=== PATIENT | male | born 1980 | race Caucasian/White ===

== ENCOUNTER 2017-01-05 11:46 | Emergency (ER) ==
[2017-01-05 11:46] VITALS: BMI 29.0
[2017-01-05 11:52] VITALS: BP 130/85; TEMP 97.2
--- NOTE | 2017-01-05 11:54 | ED.PDOC ---
General ED Provider: Dr. EMELY PATIÑO Chief Complaint: Tooth Problem Stated Complaint: dental pain Time Seen by Physician: 11:50 (see photos berenice present at all times ) Mode of Arrival: Walk-In Information Source: Patient Exam Limitations: No limitations Primary Care Provider: KENNY BONILLA Nursing and Triage Documentation Reviewed and Agree: Yes (seen his dentist and just got started on antibiotics today) Review of Systems - Review Of Systems Constitutional: Reports: No symptoms Eyes: Reports: No symptoms Ears, Nose, Mouth, Throat: Reports: Mouth pain (facial edema right side) Respiratory: Reports: No symptoms Cardiac: Reports: No symptoms GI: Reports: No symptoms : Reports: No symptoms Musculoskeletal: Reports: No symptoms Skin: Reports: No symptoms Neurological: Reports: No symptoms Endocrine: Reports: No symptoms Hematologic/Lymphatic: Reports: No symptoms All Other Systems: Reviewed and Negative Past Medical History - Past Medical History Previously Healthy: Yes Endocrine: Reports: None Cardiovascular: Reports: None Respiratory: Reports: None Hematological: Reports: None Gastrointestinal: Reports: None Genitourinary: Reports: None Neuro/Psych: Reports: None Musculoskeletal: Reports: None Cancer: Reports: None - Surgical History General Surgical History: Reports: None - Family History Family History: Reports: None - Social History Smoking Status: Current every day smoker Hx Substance Use: No Alcohol Screening: None Physical Exam - Physical Exam Appearance: Well-appearing, No pain distress, Well-nourished Eyes: MELBA, EOMI, Conjunctiva clear ENT: Ears normal (facial edema see photos), Nose normal, Oropharynx normal Respiratory: Airway patent, Breath sounds clear, Breath sounds equal, Respirations nonlabored Cardiovascular: RRR, Pulses normal, No rub, No murmur GI/: Soft, Nontender, No masses, Bowel sounds normal, No Organomegaly Musculoskeletal: Normal strength, ROM intact, No edema, No calf tenderness Skin: Warm, Dry, Normal color Neurological: Sensation intact, Motor intact, Reflexes intact, Cranial nerves intact, Alert, Oriented Psychiatric: Affect appropriate, Mood appropriate Critical Care Note - Critical Care Note Total Time (mins): 0 Course - Course Vital Signs: Temp Pulse Resp BP Pulse Ox 01/05/17 11:47 97.2 F L 87 16 130/85 98 Departure - Departure Time of Disposition: 12:17 (started meds today) Disposition: HOME SELF-CARE Discharge Problem: Toothache, Dental abscess Instructions: Dental Abscess (ED), Dental Abscess (GEN) Condition: Good Pt referred to PMD for follow-up: Yes Additional Instructions: Please call your Family Physician as soon as possible to schedule a follow-up appointment. Allergies/Adverse Reactions: Allergies meloxicam [From Mobic] Adverse Reaction (Verified 01/05/17 11:52) Home Medications: Ambulatory Orders Clindamycin HCl 300 mg PO BID 01/05/17 Disposition Discussed With: Patient
[2017-01-05] MEDS ORDERED: LIDOCAINE HCL 1% SDV SUBCUT STA (11:57)
[2017-01-05] MEDS ORDERED: ROCEPHIN IM STA (11:57)
== END 2017-01-05 12:35 | disposition home or self-care (01) ==
LOC: ED 11:46
DX: K04.7 Periapical abscess without sinus (principal); K08.89 Other specified disorders of teeth and supporting structures; F17.210 Nicotine dependence, cigarettes, uncomplicated
CPT/HCPCS: 96372; 99283

== ENCOUNTER 2018-08-05 07:45 | Emergency (ER) | payer OTHER ==
[2018-08-05 07:49] VITALS: BP 97/62; TEMP 98.5
[2018-08-05] MEDS ORDERED: ZOFRAN 4 MG/2 ML IM STA (08:03)
[2018-08-05] MEDS ORDERED: ZOFRAN 4 MG/2 ML IVP STA (08:04)
[2018-08-05] MEDS ORDERED: SODIUM CHLORIDE 1,000 ML IV STA ×2 (08:04→09:19)
[2018-08-05 08:48] VITALS: BMI 31.3
--- NOTE | 2018-08-05 09:01 | CT ---
EXAM: Noncontrast CT of the abdomen and pelvis HISTORY: Pain COMPARISON: None available TECHNIQUE: Axial noncontrast CT of the abdomen and pelvis with sagittal and coronal reformats. FINDINGS: Noncontrast technique limits evaluation of the abdominal viscera. The unenhanced liver, spleen, adre nals, and kidneys appear unremarkable. The pancreas is atrophic. There is no evidence of urolithias is. The stomach is not well distended. Multiple nondilated fluid filled loops of small bowel are present . Fluid is seen throughout the colon. The appendix is within normal limits. No free air or free fluid is identified. A small hiatal hernia is seen. IMPRESSION: Multiple nondilated fluid filled loops of small bowel suggesting enteritis. Generalized colonic fluid suggesting diarrheal state. Noncontrast exam.
--- NOTE | 2018-08-05 09:18 | ED.PDOC ---
General ED Provider: Dr. EMELY PATIÑO Chief Complaint: Nausea/Vomiting Stated Complaint: acute nausea, vomiting diarrhea Time Seen by Physician: 08:00 Mode of Arrival: Wheelchair Information Source: Patient, Family Exam Limitations: No limitations Primary Care Provider: KENNY BONILLA Nursing and Triage Documentation Reviewed and Agree: Yes Does patient meet sepsis criteria?: No System Inflammatory Response Syndrome: Not Applicable Sepsis Protocol: For patient's 13 years and over: Temp is 96.8 and below OR 101 and greater Pulse >90 BPM Resp >20/minute Acutely Altered Mental Status Are patient's symptoms suggestive of a new infection, such as: -Pneumonia -Skin, Soft Tissue -Endocarditis -UTI -Bone, Joint Infection -Implantable Device -Acute Abdominal Infection -Wound Infection -Meningitis -Blood Stream Catheter Infection -Unknown GI Complaint Exam - Vomiting/Diarrhea Complaint/Exam Symptoms Are: Still present Episodes of Vomiting over last 24 Hours: 8 Initial Severity: Moderate Current Severity: None Aggravating: Reports: None Alleviating: Reports: None Associated Signs and Symptoms: Reports: Abdominal pain. Denies: Dizziness, Light-headedness, Melena, Hematemesis, Fever, Cramping Non-GI Risk Factors: Reports: None Surgical Obstruction Risk Factors: Reports: None Related Surgical History: Reports: None Abdominal Findings: Present: None Kussmaul Respirations Present: No Differential Diagnoses: Viral Gastroenteritis Review of Systems - Review Of Systems Constitutional: Reports: No symptoms Eyes: Reports: No symptoms Ears, Nose, Mouth, Throat: Reports: No symptoms Respiratory: Reports: No symptoms Cardiac: Reports: No symptoms GI: Reports: Abdominal pain, Diarrhea, Nausea, Poor appetite, Poor fluid intake , Vomiting : Reports: No symptoms Musculoskeletal: Reports: No symptoms Skin: Reports: No symptoms Neurological: Reports: No symptoms Endocrine: Reports: No symptoms Hematologic/Lymphatic: Reports: No symptoms All Other Systems: Reviewed and Negative Past Medical History - Past Medical History Previously Healthy: Yes Endocrine: Reports: None Cardiovascular: Reports: None Respiratory: Reports: None Hematological: Reports: None Gastrointestinal: Reports: None Genitourinary: Reports: None Neuro/Psych: Reports: None Musculoskeletal: Reports: None Cancer: Reports: None - Surgical History General Surgical History: Reports: None - Family History Family History: Reports: None - Social History Smoking Status: Current every day smoker, Light tobacco smoker Hx Substance Use: No Alcohol Screening: Occasionally Physical Exam - Physical Exam Appearance: Well-appearing, No pain distress, Well-nourished Eyes: MELBA, EOMI, Conjunctiva clear ENT: Ears normal, Nose normal, Oropharynx normal Respiratory: Airway patent, Breath sounds clear, Breath sounds equal, Respirations nonlabored Cardiovascular: RRR, Pulses normal, No rub, No murmur GI/: Tender Musculoskeletal: Normal strength, ROM intact, No edema, No calf tenderness Skin: Warm, Dry, Normal color Neurological: Sensation intact, Motor intact, Reflexes intact, Cranial nerves intact, Alert, Oriented Psychiatric: Affect appropriate, Mood appropriate Critical Care Note - Critical Care Note Total Time (mins): 0 Course - Course Hematology/Chemistry: 08/05/18 08:15 08/05/18 08:15 Orders, Labs, Meds: Lab Review 08/05/18 08/05/18 08:15 08:15 WBC 10.35 H RBC 5.75 Hgb 17.9 Hct 52.7 H MCV 91.7 MCH 31.1 H MCHC 34.0 RDW Coeff of Beto 13.3 Plt Count 263 Immature Gran % (Auto) 0.5 Neut % (Auto) 85.4 Lymph % (Auto) 8.7 L [place] % (Auto) 4.8 Eos % (Auto) 0.3 Baso % (Auto) 0.3 Immature Gran # (Auto) 0.1 Neut # (Auto) 8.8 H Lymph # (Auto) 0.9 [place] # (Auto) 0.5 Eos # (Auto) 0.0 Baso # (Auto) 0.0 Sodium 140.3 Potassium 3.79 Chloride 107.5 H Carbon Dioxide 15.6 L Anion Gap 20.99 BUN 16.6 Creatinine 1.06 Estimated GFR (MDRD) 79.00 BUN/Creatinine Ratio 15.66 Glucose 97.2 Calcium 9.70 Total Bilirubin 0.41 AST 24.7 ALT 24.5 Alkaline Phosphatase 72.1 Total Protein 8.21 H Albumin 5.24 H Globulin 2.97 Albumin/Globulin Ratio 1.76 Amylase 73.2 Lipase 44.5 Orders Category Date Time Status AMYLASE Stat LAB 08/05/18 08:15 Completed CBC W/ AUTO DIFF Stat LAB 08/05/18 08:15 Completed COMPREHENSIVE METABOLIC PANEL Stat LAB 08/05/18 08:15 Completed LIPASE Stat LAB 08/05/18 08:15 Completed Diphenoxylate HCl/Atropine [Lomotil] MEDS 08/05/18 09:20 Discontinued 2 tab PO ONCE STA Ondansetron HCl/Pf [Zofran 4 mg/2 ml] MEDS 08/05/18 08:04 Discontinued 4 mg IVP ONCE STA Sodium Chloride 0.9% [Sodium Chloride] 1,000 ml MEDS 08/05/18 08:04 Discontinued IV BOLUS Sodium Chloride 0.9% [Sodium Chloride] 1,000 ml MEDS 08/05/18 09:[address] ABDOMEN/PELVIS WO CONTRAST Stat RADS 08/05/18 08:03 Completed Medications Discontinued Medications Generic Name Dose Route Start Last Admin Trade Name Freq PRN Reason Stop Dose Admin Diphenoxylate HCl/Atropine 2 tab 08/05/18 09:20 08/05/18 09:25 Lomotil PO 08/05/18 09:21 2 tab ONCE STA Administration Sodium Chloride 1,000 mls @ 1,000 mls/hr 08/05/18 08:04 08/05/18 08:12 Sodium Chloride IV 08/05/18 09:03 1,000 mls/hr BOLUS STA Administration Sodium Chloride 1,000 mls @ 1,000 mls/hr 08/05/18 09:19 08/05/18 09:23 Sodium Chloride IV 08/05/18 10:18 1,000 mls/hr BOLUS STA Administration Ondansetron HCl 4 mg 08/05/18 08:04 08/05/18 08:16 Zofran 4 Mg/2 Ml IVP 08/05/18 08:05 4 mg ONCE STA Administration Vital Signs: Temp Pulse Resp BP Pulse Ox 08/05/18 07:45 98.5 F 118 H 20 97/62 95 Departure - Departure Time of Disposition: 20:00 Disposition: HOME SELF-CARE Discharge Problem: Nausea, Vomiting, Acute gastroenteritis Instructions: Gastroenteritis (ED), Gastroenteritis (DC), Acute Nausea and Vomiting (ED), Food Poisoning (ED) Condition: Good Pt referred to PMD for follow-up: Yes IPMP verified?: No Additional Instructions: Please call your Family Physician as soon as possible to schedule a follow-up appointment. Prescriptions: Diphenoxylate HCl/Atropine [Lomotil 2.5-0.025 mg Tablet] 1 each PO 2-4XD #10 tablet Ondansetron HCl [Zofran] 4 mg PO TID #7 tablet Allergies/Adverse Reactions: Allergies meloxicam [From Mobic] Adverse Reaction (Verified 08/05/18 07:50) Home Medications: Ambulatory Orders Diphenoxylate HCl/Atropine [Lomotil 2.5-0.025 mg Tablet] 1 each PO 2-4XD #10 tablet 08/05/18 Ondansetron HCl [Zofran] 4 mg PO TID #7 tablet 08/05/18 Disposition Discussed With: Patient
[2018-08-05] MEDS ORDERED: LOMOTIL PO STA (09:20)
== END 2018-08-05 10:37 | disposition home or self-care (01) ==
LOC: ED 07:45
DX: K52.9 Noninfective gastroenteritis and colitis, unspecified (principal); F17.210 Nicotine dependence, cigarettes, uncomplicated
CPT/HCPCS: 36415; 80053; 82150; 83690; 85025; 96361; 96374; 99283